=== PATIENT | female | born 1985 | race Caucasian/White ===

== ENCOUNTER 2018-07-23 13:22 | Inpatient (IN) | payer OTHER ==
[~2018-07-23] VITALS: Ht 165.1 cm; Wt 3.2 kg
== END 2018-07-31 13:26 | disposition home or self-care (01) | DRG 788 ==
LOC: ADM 07-27 08:30 → EDSTATUS 07-27 08:30 → LDR 07-27 23:52 → OB/GYN 07-28 11:04
PROC: 10D00Z1 Extraction of Products of Conception, Low, Open Approach (ICD-10-PCS; principal; 2018-07-27)
PROC: 3E033VJ Introduction of Other Hormone into Peripheral Vein, Percutaneous Approach (ICD-10-PCS; 2018-07-27)
PROC: 4A1HXCZ Monitoring of Products of Conception, Cardiac Rate, External Approach (ICD-10-PCS; 2018-07-27)
DX: O62.1 Secondary uterine inertia (principal); Z3A.39 39 weeks gestation of pregnancy; Z37.0 Single live birth